=== PATIENT | female | born 1945 | race Caucasian/White ===

== ENCOUNTER 2017-11-04 16:04 | Outpatient (CLI) | payer MEDICARE, BC | END 2017-11-04 16:05 | disposition home or self-care (01) | LOC: BICMAMMO 16:04 | PROVIDERS: ATTEND Nurse Practitioner Family | DX: Z12.31 Encounter for screening mammogram for malignant neoplasm of breast (principal); Z78.0 Asymptomatic menopausal state; R92.1 Mammographic calcification found on diagnostic imaging of breast; M85.88 Other specified disorders of bone density and structure, other site; M85.862 Other specified disorders of bone density and structure, left lower leg | CPT/HCPCS: 77063; 77080; G0202; 77067 ==

== ENCOUNTER 2019-09-09 13:26 | Outpatient (CLI) | payer MEDICARE, BC ==
--- NOTE | 2019-09-09 14:06 | MMO ---
Bilateral MAMMO Bilat Screen DDI+NANCY. CLINICAL HISTORY: Patient is 73 years old and is seen for screening. The patient has no family history of breast cancer. The patient has no personal history of cancer. VIEWS: The views performed were: bilateral craniocaudal with tomosynthesis and bilateral mediolateral oblique with tomosynthesis. FILMS COMPARED: The present examination has been compared to prior imaging studies performed at [facility] on 11/02/2016 and 11/04/2017, and at [facility] on 09/24/2007 and 07/01/2009. This study has been interpreted with the assistance of computer-aided detection. MAMMOGRAM FINDINGS: There are scattered fibroglandular densities. There are vascular calcifications seen in both breasts. There are no suspicious masses, suspicious calcifications, or new areas of architectural distortion. IMPRESSION: THERE IS NO MAMMOGRAPHIC EVIDENCE OF MALIGNANCY. A ROUTINE FOLLOW-UP MAMMOGRAM IN 1 YEAR IS RECOMMENDED. THE RESULTS OF THIS EXAM WERE SENT TO THE PATIENT. ACR BI-RADS Category 2 - Benign finding MAMMOGRAPHY NOTE: 1. A negative mammogram report should not delay a biopsy if a dominant of clinically suspicious mass is present. 2. Approximately 10% to 15% of breast cancers are not detected by mammography. 3. Adenosis and dense breasts may obscure an underlying neoplasm. Reported by: ABBY ELLIS MD Electonically Signed: [id number]
== END 2019-09-09 13:27 | disposition home or self-care (01) ==
LOC: BICMAMMO 13:26
PROVIDERS: ATTEND Nurse Practitioner Family
DX: Z12.31 Encounter for screening mammogram for malignant neoplasm of breast (principal)
CPT/HCPCS: 77063; 77067

== ENCOUNTER 2020-04-29 08:15 | Inpatient (IN) | payer MEDICARE, BC ==
[2020-04-29 08:36] LABS: #Basophils 0.1 thou/uL (0.0-0.2); #Eosinphils 0.2 thou/uL (0.0-0.7); #Lymphocytes 1.9 thou/uL (1.20-3.40); #Monocytes 0.5 thou/uL (0.11-0.59); #Neutrophils 7.5 thou/uL (1.40-6.50); %Basophils 0.5 % (0.0-1.0); %Eosinophils 2.2 % (0.0-10.0); %Lymphocytes 18.9 % (21.0-51.0); %Monocytes 5.3 % (0.0-10.0); %Neutrophils 73.2 % (42.0-75.0); Hemoglobin 14.4 g/dL (12.0-16.0); Mean Corpuscular HGB CONC 33.1 g/dL (32.0-36.0); Mean Corpuscular Hemoglobin 30.5 pg (27.0-31.0); Mean Corpuscular Volume 92.2 fL (78.0-98.0); Mean Platelet Volume 7.4 fL (7.4-10.4); Platelet Count 212 thou/uL (130-400); RBC Distribution Width 11.6 % (11.5-14.5); Red Blood Cell (RBC) Count 4.72 mill/uL (4.20-5.40); White Blood Cell (WBC) Count 10.2 thou/uL (4.8-10.8)
[2020-04-29 08:41] LABS: Prothrombin Time 12.9 sec (12.0-14.7)
[2020-04-29] MEDS ORDERED: Adacel (T-DAP) 0.5 ML SYRINGE ONE (08:42)
[2020-04-29 08:51] LABS: ALT (SGPT) 19 U/L (8-55); AST (SGOT) 20 U/L (5-34); Albumin 3.7 g/dL (3.4-4.8); Alkaline Phosphatase 68 U/L (40-110); Anion Gap 10 mmol/L (10-20); BUN (Urea Nitrogen) 27 mg/dL (9.8-20.1); Bilirubin, Total 0.5 mg/dL (0.2-1.2); CK (CPK) 81 U/L (29-168); Calc. Creatinine Clearance 0 mL/min (70-130); Carbon Dioxide 29 mmol/L (23-31); Chloride 106 mmol/L (98-107); Estimated GFR-MDRD 53; Globulin 2.9 g/dL (2.4-3.5); Glucose 146 mg/dL (83-110); Protein, Total 6.6 g/dL (6.0-8.3); Sodium 141 mmol/L (136-145)
[2020-04-29] MEDS ORDERED: Fentanyl 100 MCG/2 ML VIAL ONE (08:54)
[2020-04-29] MEDS ORDERED: Ketamine 50 MG/ML (10ML VIAL) ONE (10:51)
--- NOTE | 2020-04-29 10:53 | RAD ---
SINGLE VIEW OF THE CHEST: COMPARISON: None. HISTORY: Fall. Level II trauma. Preoperative radiograph. FINDINGS: A single view of the chest shows a normal-size cardiomediastinal silhouette. A cardiac monitoring de vice projects over the left chest wall. There is no evidence of consolidation, mass, or pleural effu jossue. IMPRESSION: No evidence of acute cardiopulmonary disease. POS: EAA
--- NOTE | 2020-04-29 10:57 | RAD ---
TWO VIEWS OF THE RIGHT TIBIA/FIBULA: COMPARISON: None. HISTORY: Level II trauma after a fall. Right leg pain. FINDINGS: Two views of the right tibia/fibula show transverse fractures of the distal third of the tibia and fi bula. IMPRESSION: Distal tibia and fibula fractures. POS: EAA
[2020-04-29] MEDS ORDERED: Ondansetron PF 4 MG/2 ML Vial IVP PRN (11:57)
[2020-04-29] MEDS ORDERED: Dextrose 50% Abboject 50 ML SYRINGE SLOW IVP PRN (11:57)
[2020-04-29] MEDS ORDERED: Morphine 2 MG/ML SYRINGE SLOW IVP PRN (11:57)
[2020-04-29] MEDS ORDERED: Dextrose 5% in Water 1,000 ML IV PRN (11:57)
[2020-04-29] MEDS ORDERED: hydrALAZINE 20 MG/ML VIAL SLOW IVP PRN (11:57)
[2020-04-29] MEDS ORDERED: Cyclobenzaprine 10 MG TAB PO PRN (11:59)
[2020-04-29] MEDS ORDERED: Sodium Chloride 0.9% 1,000 ML IV SCH (12:00)
--- NOTE | 2020-04-29 13:18 | HP ---
TRAUMA SURGEON: Dr. Persaud. CONSULTING PHYSICIAN: Dr. Scott of Orthopedic Surgery. HISTORY OF PRESENT ILLNESS: The patient is a 74-year-old female, presented to the emergency department via EMS as a level 2 trauma activation after she had a mechanical fall from a ladder. The patient reported she was about 2 to 3 feet off the ground. She said she slipped subsequently falling backwards. Her right leg got stuck in the ladder. She denies loss of consciousness. Reports she takes a baby aspirin every day, but no other anticoagulation. She had a right closed distal tib-fib fracture, which was reduced by the emergency room physician. Upon my evaluation, she complained of right lower extremity pain. Otherwise, she denied numbness and tingling in her bilateral upper and lower extremities as well as neck or back pain. She denies loss of consciousness. REVIEW OF SYSTEMS: All additional 10-point review of systems negative except as indicated above. PAST MEDICAL HISTORY: Hypertension, hypothyroidism, and hyperlipidemia. The patient also has an implanted monitoring analyst for the past year due to a syncopal episode. There has been no recordings that have been concerning yet. PAST SURGICAL HISTORY: Tubal ligation. SOCIAL HISTORY: The patient lives at home alone. She does not use any assistive devices to get around. She denies tobacco, drug or alcohol abuse. Her daughter is at the bedside. MEDICATIONS: 1. Omeprazole. 2. Amlodipine. 3. Levothyroxine. 4. Lisinopril/hydrochlorothiazide. 5. Pravastatin. 6. Trazodone. 7. Baby aspirin. 8. Calcium. 9. Vitamin D3. 10. Meloxicam. ALLERGIES: NO KNOWN DRUG ALLERGIES. PHYSICAL EXAMINATION: VITAL SIGNS: Temperature 98.6, pulse 63, respirations 12, oxygen saturation 95% on room air, and blood pressure 148/82. PRIMARY SURVEY: Airway intact. Adequate breath sounds bilaterally. 2+ pulses in bilateral radials, femorals, and DPs. GCS 15. Gross motor and sensation intact. No lacerations bruising or external bleeding. There is a splint to the right lower extremity. SECONDARY SURVEY: HEAD: Normocephalic and atraumatic. No gross palpable skull deformities or tenderness. EYES: Pupils 3-2, equal, round, reactive to light bilaterally. FACE: No signs of trauma. C-SPINE: No step-offs or deformities, nontender, C-collar not in place. CHEST: Nontender. No crepitus. No abrasions or ecchymosis. Equal chest movement. ABDOMEN: Soft, nontender, and nondistended. PELVIS: Stable to palpation, nontender. No abrasions or ecchymosis. RECTAL: Deferred. GENITOURINARY: Deferred. EXTREMITIES: The patient has a splint to the right lower extremity. No abrasions or ecchymosis. 2+ pulses in bilateral radials, femorals, and DPs. BACK/SPINE: No step-offs or deformities or tenderness to palpation of the thoracic or lumbar spine. No abrasions or ecchymosis noted. NEUROLOGIC: 5/5 strength in bilateral payroll accounting clerk, plantar flexion, dorsiflexion. Gross normal sensation x4 extremities. LABORATORY FINDINGS: White count 10.2, hemoglobin 14.4, hematocrit 43.5, and platelets 212. INR 1.0. Sodium 141, potassium 4.0, chloride 106, bicarb 29, BUN 27, creatinine 1.02, and glucose 146. Troponin less than 0.010. DIAGNOSTIC FINDINGS: Chest x-ray demonstrates no evidence of acute cardiopulmonary disease. X-ray of the right tib-fib demonstrates distal tibia and fibula fractures. ASSESSMENT: 1. Status post fall from ladder, about 3 feet. 2. Right distal tib-fib fracture. 3. History of hypertension, hypothyroidism, and hyperlipidemia. PLAN: The patient will be admitted to the Trauma Service. Dr. Scott of Orthopedic Surgery has been consulted and plans to take the patient to the OR today. She is receiving 500 mL bolus in the emergency department. She is n.p.o. and will also receive 1 L of IV fluids at 70 an hour once. Postoperatively, she will have a regular diet. She will have p.o. and IV pain medications both scheduled and as needed. Postop, she will work with Physical and Occupational Therapy. She will likely need placement in acute rehab facility. Once nursing has completed the patient's med rec, we will start her home medications as clinically indicated. This patient was discussed with Dr. Persaud before this dictation. Job ID: [id number]
[2020-04-29] MEDS: Acetaminophen 500 MG TAB PO SCH ×3 (14:38→23:32)
[2020-04-29] MEDS: Ibuprofen 600 MG TAB PO SCH ×2 (15:31→19:33)
[2020-04-29] MEDS: Gabapentin 100 MG CAP PO SCH ×2 (15:32→19:33)
--- NOTE | 2020-04-29 15:41 | CON ---
DATE OF CONSULTATION: CHIEF COMPLAINT: Right leg pain after fall. HISTORY OF PRESENT ILLNESS: The patient is a 74-year-old female, who was on a ladder and lost her balance and fell approximately 3 to 4 foot. Her right leg caught in the ladder and snapped. No loss of consciousness. No other injuries. PAST MEDICAL HISTORY: Hypertension, hypothyroidism. PAST SURGICAL HISTORY: She has had bilateral tubal ligation . Echocardiogram. She is on a heart monitor. Her animation director is Dr. Rivera. ALLERGIES: SHE HAS NO KNOWN DRUG ALLERGIES. SOCIAL HISTORY: She is . No tobacco or alcohol. FAMILY HISTORY: Diabetes, hypertension, and heart disease. MEDICATIONS: 1. Omeprazole. 2. Amlodipine. 3. Levothyroxine. 4. Lisinopril/hydrochlorothiazide. 5. Pravastatin. 6. Trazodone. 7. Baby aspirin. 8. Calcium. 9. Vitamin D3. PHYSICAL EXAMINATION: VITAL SIGNS: Temperature 98.4, pulse 70, blood pressure 135/80, and saturation 94%. GENERAL: She is awake, alert, in no apparent distress. HEENT: Good hair growth. No alopecia. No scalp or facial trauma. Her pupils are equal, round, and reactive. Extraocular movement intact. Good dentition. Pharynx clear. Trachea midline. NECK: Supple. Nontender. No soft tissue swelling. CHEST: Nontender. No evidence of trauma. ABDOMEN: Soft, nondistended, and nontender. No masses. No evidence of trauma. PELVIS: Stable. EXTREMITIES: Her right lower leg is in a splint. She has a good capillary refill. She can wiggle her toes. There is no sensory loss on the left. Good pulses. No pedal edema. BACK: Nontender. IMAGING DATA: X-ray shows a distal tibia and fibula fracture. ASSESSMENT: Tibia-fibula fracture, right lower leg. PLAN: Orthopedic repair. Job ID: [id number]
--- NOTE | 2020-04-29 19:20 | CON ---
DATE OF CONSULTATION: 04/29/2020 HISTORY OF PRESENT ILLNESS: Ms. Webster is a 74-year-old female, who fell approximately 2 to 3 feet off the ladder, slipped, falling backwards. The right leg got stuck in the ladder. She had immediate pain, deformity in the right leg. The patient was brought to the emergency room and x-rays revealed displaced distal right tibia and fibula shaft fractures. The patient has no neurologic complaints. The fractures were partially reduced and she was placed in a splint. PAST SURGICAL HISTORY: Tubal ligation. MEDICAL HISTORY: Hypertension, hypothyroidism, hyperlipidemia. She has an implanted front desk monitor in the past year due to syncopal episodes. SOCIAL HISTORY: The patient lives at home alone. She denies tobacco, drugs, or alcohol use. CURRENT MEDICATIONS: 1. Omeprazole. 2. Amlodipine. 3. Levothyroxine. 4. Lisinopril and hydrochlorothiazide. 5. Pravastatin. 6. Trazodone. 7. Baby aspirin. 8. Calcium. 9. Vitamin D3. 10. Meloxicam. ALLERGIES: NONE. PHYSICAL EXAMINATION: GENERAL: The patient is pleasant female, alert and oriented x3. VITAL SIGNS: The patient is afebrile. Pulse 63, respiratory rate 12, blood pressure 148/82, and O2 saturation 95% on room air. HEENT: Unremarkable for age. Cranial nerves 2 through 12 are grossly intact. NECK: Has good range of motion without pain. Thoracic and lumbar spine nontender to palpation. LUNGS: Clear bilaterally. HEART: Regular rate and rhythm. ABDOMEN: Soft and nontender. Bowel sounds positive. : Not done. EXTREMITIES: The patient has a splint on the right lower extremity. She is able to flex and extend her toes well. She has good peripheral pulses and normal sensation. LABORATORY DATA: White count 10.2, hemoglobin 14.4, hematocrit 43.5, glucose slightly elevated at 146. INR is 1. IMPRESSION: 1. Displaced right distal tibia and fibular shaft fractures. 2. Hypertension. 3. Hypothyroidism. 4. Hyperlipidemia. PLAN: The patient will require open reduction and internal fixation of the right tibia and fibula. Plan on using an interlocking intramedullary sophia for the tibial shaft fracture. Explained this to the patient. We talked about the risks, benefits, and alternatives. The patient is in agreement with the surgery. We will proceed with that tomorrow morning. Job ID: [id number]
[2020-04-29] MEDS: Senokot S 8.6-50 MG TAB PO SCH (19:32)
[2020-04-29] MEDS: traMADol HCl 50 MG TAB PO PRN (19:33)
[2020-04-29] MEDS: Atorvastatin Calcium 10 MG TAB PO SCH (19:33)
[2020-04-29] MEDS ORDERED: Famotidine/PF 20 mg/2ml Vial SLOW IVP SCH (21:00)
--- NOTE | 2020-04-30 04:10 | PRG ---
DATE OF SERVICE: 04/30/2020 SUBJECTIVE: Ms. Webster remained in surgical floor. The patient was seen on round this evening. The patient reports pain is controlled. Her urine is adequate. Her vital signs have been stable. OBJECTIVE: GENERAL: Currently, the patient is lying in bed comfortable with no acute respiratory distress. VITAL SIGNS: Stable. LUNGS: Clear bilaterally. HEART: Regular rate and rhythm. ABDOMEN: Soft, nondistended. EXTREMITIES: Neurovascularly intact x4. Right lower extremity splint is intact. ASSESSMENT: 1. Status post mechanical fall. 2. Right tibia-fibula fracture. 3. History of hypertension, hypothyroidism. PLAN: Plan will be to continue supportive care. Continue pain control. Continue nonpharmacological DVT prophylaxis and pulmonary toilet. Gastritis prophylaxis. The patient will have plan to go to the OR tomorrow for right tib-fib fracture fixation. Postop, the patient will need to work with Physical Therapy and Occupational Therapy. Anticipate placement in rehabilitation facility or [facility] facility. Job ID: [id number]
[2020-04-30] MEDS: Acetaminophen 500 MG TAB PO SCH ×4 (05:02→23:34)
[2020-04-30] MEDS: Ibuprofen 600 MG TAB PO SCH ×3 (05:03→21:25)
[2020-04-30] MEDS: Levothyroxine Sodium 75 MCG TAB PO SCH (05:03)
[2020-04-30 06:11] LABS: #Eosinphils 0.2 thou/uL (0.0-0.7); #Lymphocytes 1.1 thou/uL (1.20-3.40); #Monocytes 0.3 thou/uL (0.11-0.59); #Neutrophils 2.7 thou/uL (1.40-6.50); %Basophils 0.6 % (0.0-1.0); %Eosinophils 5.5 % (0.0-10.0); %Monocytes 6.7 % (0.0-10.0); %Neutrophils 61.2 % (42.0-75.0); Hemoglobin 12.1 g/dL (12.0-16.0); Mean Corpuscular HGB CONC 32.5 g/dL (32.0-36.0); Mean Corpuscular Hemoglobin 29.9 pg (27.0-31.0); Mean Corpuscular Volume 91.9 fL (78.0-98.0); Mean Platelet Volume 7.6 fL (7.4-10.4); Platelet Count 166 thou/uL (130-400); RBC Distribution Width 11.8 % (11.5-14.5); Red Blood Cell (RBC) Count 4.04 mill/uL (4.20-5.40); White Blood Cell (WBC) Count 4.3 thou/uL (4.8-10.8)
[2020-04-30 06:29] LABS: Anion Gap 10 mmol/L (10-20); BUN (Urea Nitrogen) 26 mg/dL (9.8-20.1); Calc. Creatinine Clearance 64 mL/min (70-130); Calcium 8.1 mg/dL (7.8-10.44); Carbon Dioxide 28 mmol/L (23-31); Chloride 108 mmol/L (98-107); Estimated GFR-MDRD 67; Glucose 97 mg/dL (83-110); Phosphorus 3.6 mg/dL (2.3-4.7); Potassium 4.4 mmol/L (3.5-5.1); Sodium 142 mmol/L (136-145)
[2020-04-30] MEDS ORDERED: Phenylephrine 10 MG/ML VIAL ONE (07:17)
[2020-04-30] MEDS ORDERED: Fentanyl 100 MCG/2 ML VIAL ONE ×2 (07:17→09:37)
[2020-04-30] MEDS ORDERED: Neomycin-Polymyxin 1 ML AMP ONE (07:20)
[2020-04-30] MEDS ORDERED: Sodium Chloride 0.9% 10 ML ONE (07:42)
[2020-04-30] MEDS ORDERED: Bupivacaine HCl 0.5%/Epinephrine 1:200,000/PF 30 ml Vial ONE (08:56)
[2020-04-30] MEDS ORDERED: Ondansetron ODT 4 MG TAB PO PRN (09:12)
[2020-04-30] MEDS ORDERED: Milk Of Magnesia 30 ML UDCUP PO PRN (09:12)
[2020-04-30] MEDS ORDERED: Fleet Enema 133 ML BOT PR PRN (09:12)
[2020-04-30] MEDS ORDERED: Ondansetron PF 4 MG/2 ML Vial IVP PRN (09:12)
[2020-04-30] MEDS ORDERED: Bisacodyl 10 MG SUPP PR PRN (09:12)
[2020-04-30] MEDS ORDERED: Cepastat Lozenges 1 LOZ PO PRN (09:12)
[2020-04-30] MEDS ORDERED: Promethazine HCl 25 MG/ML VIAL SLOW IVP PRN (09:21)
[2020-04-30] MEDS ORDERED: Ondansetron HCl/PF 4 MG/2 ML Vial IVP PRN (09:21)
[2020-04-30] MEDS ORDERED: Promethazine HCl 25 MG/ML VIAL IM PRN (09:21)
[2020-04-30] MEDS: Gabapentin 100 MG CAP PO SCH ×3 (09:25→20:26)
[2020-04-30] MEDS: Polyethylene Glycol 3350 17 GM Packet PO SCH (09:26)
[2020-04-30] MEDS: Senokot S 8.6-50 MG TAB PO SCH ×2 (09:26→20:26)
[2020-04-30] MEDS: Sodium Phosphate 15 MMOL in Sodium Chloride 0.9% 250 ML 250 ML IVPB SCH ×2 (09:28→15:32)
[2020-04-30] MEDS ORDERED: Ketorolac Tromethamine 30 MG/ML VIAL ONE (09:43)
[2020-04-30] MEDS ORDERED: Glycopyrrolate 0.2 MG/ML 5 ML SYRINGE ONE ×2 (09:52→10:55)
--- NOTE | 2020-04-30 09:57 | OP ---
DATE OF PROCEDURE: 04/30/2020 PREOPERATIVE DIAGNOSIS: Displaced distal right tibia and fibula shaft fractures. POSTOPERATIVE DIAGNOSIS: Displaced distal right tibia and fibula shaft fractures. PROCEDURE PERFORMED: Interlocking intramedullary rodding of the right distal tibial shaft. ANESTHESIA: General. DESCRIPTION OF PROCEDURE: The patient was given preoperative IV antibiotics, taken to the operating room, placed in a supine position. Satisfactory general anesthesia was performed. The right lower extremity was sterilely prepped and draped in the usual fashion. After exsanguination, the tourniquet at the proximal right thigh was raised to 250 mmHg. A longitudinal incision was made medial to the patella down to the proximal tibia, and under fluoroscopic visualization, a guide pin was placed through the proximal aspect of the tibia into the intramedullary canal. The guide pin was then over-reamed and the guide pin for reaming was then inserted into the tibial shaft and crossing the fracture. Appropriate size sophia was measured on the length and the intramedullary canal was then sequentially reamed up to 13.5. A Synthes 12-mm cannulated tibial nail that was 315 mm in length was then inserted through the proximal aspect of the tibia, crossing the fracture down to the distal tibia. An interlocking 5-mm locking screw was then inserted into the proximal aspect of the shaft and then two of the 5.0 locking screws were inserted distally. This provided excellent fixation for the tibial shaft fracture and provided good alignment for the distal fibular shaft fracture. The wounds were then irrigated with antibiotic solution. The retinacular tissue was closed using #2 Vicryl, the fat and subcutaneous tissue were closed with 0 Vicryl, and the skin incisions were closed with skin edward. Total of 30 mL of 0.5% Marcaine with epinephrine was then used to provide postoperative analgesia. Sterile dressing was applied. The patient was placed in a tall boot. The tourniquet was released. The patient was awakened, extubated, and transferred to recovery room in stable condition. ESTIMATED BLOOD LOSS: Minimal. COMPLICATIONS: None. TOURNIQUET TIME: 39 minutes. Job ID: [id number]
[2020-04-30] MEDS ORDERED: CEFAZOLIN 2 GM in Premix Bag 1 BAG IVPB SCH (10:30)
[2020-04-30] MEDS ORDERED: PROPOFOL 200 MG/20 ML VIAL ONE (10:55)
[2020-04-30] MEDS ORDERED: Ondansetron PF 4 MG/2 ML Vial ONE (10:55)
[2020-04-30] MEDS ORDERED: Rocuronium Bromide 10 MG/ML (10ML VIAL) ONE (10:55)
[2020-04-30] MEDS ORDERED: Lidocaine 1% PF 5 ML VIAL ONE (10:55)
[2020-04-30] MEDS ORDERED: EPHEDRINE 25 MG/5 ML SYRINGE ONE (10:55)
[2020-04-30] MEDS ORDERED: PHENYLEPHRINE-NS 100 MCG/ML 10 ML SYRINGE ONE (10:55)
[2020-04-30] MEDS: Ketorolac Tromethamine 30 MG/ML VIAL IVP SCH ×3 (13:14→23:33)
[2020-04-30] MEDS: CEFAZOLIN 2 GM in Premix Bag 1 BAG IVPB SCH ×2 (13:14→23:34)
--- NOTE | 2020-04-30 15:13 | RAD ---
EXAM: INTRAOPERATIVE FLUOROSCOPY: HISTORY: ORIF right tibia. COMPARISON: None. EXPOSURE: 34.8 seconds. 1.51 mGy. FINDINGS: Two intraoperative fluoroscopic views demonstrate an intramedullary sophia with a single proximal and tw o distal interlocking screws. Fracture lucencies of the distal tibia and fibula are noted. Near anato shivam alignment in suspected on the single image provided. IMPRESSION: Intraoperative fluoroscopy as above. POS: OFF
--- NOTE | 2020-04-30 15:49 | PRG ---
DATE OF SERVICE: 04/30/2020 SUBJECTIVE: The patient was seen this morning during rounds. She is postoperative day 0, status post fixation of her right distal tib-fib fracture. At the time of my evaluation, the patient reported her pain as 1/10. She has been drinking since surgery and reports she is tolerating that well. She is going to work with Physical and Occupational Therapy today and reports she will try to have a meal at lunchtime. OBJECTIVE: VITAL SIGNS: Temperature 98.0, pulse 63, respirations 20, oxygen saturation 97% on 2 L nasal cannula, and blood pressure 127/74. GENERAL: Well-appearing elderly female, lying in bed with no signs of acute distress. PULMONARY: Equal chest rise and fall. Clear breath sounds bilaterally. No signs of acute respiratory distress. CARDIAC: Regular rate and rhythm. GI: Abdomen is soft, nontender, nondistended. EXTREMITIES: 2+ pulses in all extremities. Gross motor and sensation are intact. No significant swelling noted. Splint to right lower extremity is clean, dry, and intact with no signs of oozing. NEUROLOGIC: GCS is 15. LABORATORY FINDINGS: White count 4.3, hemoglobin 12.1, hematocrit 37.2, and platelets 166. INR 1.0. Sodium 142, potassium 4.4, chloride 108, bicarb 28, BUN 26, creatinine 0.83, glucose 97, phosphorus 3.7, and magnesium 2.0. DIAGNOSTIC FINDINGS: There are no new diagnostic findings to report. ASSESSMENT: 1. Status post mechanical fall from ladder about 3 feet. 2. Right distal tib-fib fracture, status post repair. 3. Acute hypophosphatemia. 4. History of hypertension, hypothyroidism, hyperlipidemia. PLAN: The patient back on the surgical floor. Continue regular diet. Start physical and occupational therapy. We will start DVT prophylaxis tomorrow. She is back on her home medications as well. We will evaluate her need for outpatient acute rehab based off the recommendations by Physical Therapy. Job ID: [id number]
[2020-04-30] MEDS: traMADol HCl 50 MG TAB PO PRN (20:26)
[2020-04-30] MEDS: Ferrous Gluconate 324 MG TAB PO SCH (20:26)
[2020-04-30] MEDS: Atorvastatin Calcium 10 MG TAB PO SCH (20:26)
[2020-04-30] MEDS: Aspirin 325 MG TAB PO SCH (20:26)
--- NOTE | 2020-05-01 01:33 | PDOC.BPN ---
- Brief Progress Note DATE OF SERVICE: 04/30/2020 SUBJECTIVE: Ms. Webster remained in surgical floor. The patient was seen on round this evening. Patient underwent R tib/ fib fracture fixation today. Post op patient been doing well. She tolerate with her diet. The patient reports pain is controlled. Her urine is adequate. Her vital signs have been stable. OBJECTIVE: GENERAL: Currently, the patient is lying in bed comfortable with no acute respiratory distress. VITAL SIGNS: Stable. LUNGS: Clear bilaterally. HEART: Regular rate and rhythm. ABDOMEN: Soft, nondistended. EXTREMITIES: Neurovascularly intact x4. Right lower extremity splint is intact. ASSESSMENT: 1. Status post mechanical fall. 2. Right tibia-fibula fracture, status repaired 3. History of hypertension, hypothyroidism. PLAN: Plan will be to continue supportive care. Continue pain control. DVT prophylaxis and pulmonary toilet. Gastritis prophylaxis. Patient will need to work with Physical Therapy and Occupational Therapy. Anticipate placement in rehabilitation facility or [facility] home facility.
[2020-05-01 05:03] LABS: Hemoglobin 10.7 g/dL (12.0-16.0); Mean Corpuscular HGB CONC 31.8 g/dL (32.0-36.0); Mean Corpuscular Hemoglobin 29.5 pg (27.0-31.0); Mean Corpuscular Volume 92.6 fL (78.0-98.0); Mean Platelet Volume 7.9 fL (7.4-10.4); Platelet Count 151 thou/uL (130-400); RBC Distribution Width 11.8 % (11.5-14.5); Red Blood Cell (RBC) Count 3.64 mill/uL (4.20-5.40); White Blood Cell (WBC) Count 6.2 thou/uL (4.8-10.8)
[2020-05-01] MEDS: Ketorolac Tromethamine 30 MG/ML VIAL IVP SCH (05:12)
[2020-05-01] MEDS: Levothyroxine Sodium 75 MCG TAB PO SCH (05:13)
[2020-05-01] MEDS: Acetaminophen 500 MG TAB PO SCH ×3 (05:13→17:03)
[2020-05-01] MEDS: Ibuprofen 600 MG TAB PO SCH ×2 (05:13→13:04)
[2020-05-01] MEDS ORDERED: PHOS-NAK 1 PKT PACK PO SCH (08:15)
[2020-05-01] MEDS: traMADol HCl 50 MG TAB PO PRN ×2 (08:52→17:03)
[2020-05-01] MEDS: Polyethylene Glycol 3350 17 GM Packet PO SCH (08:53)
[2020-05-01] MEDS: Gabapentin 100 MG CAP PO SCH ×2 (08:54→13:05)
[2020-05-01] MEDS: Aspirin 325 MG TAB PO SCH (08:54)
[2020-05-01] MEDS: Senokot S 8.6-50 MG TAB PO SCH (08:54)
[2020-05-01] MEDS: Ferrous Gluconate 324 MG TAB PO SCH (08:54)
[2020-05-01] MEDS ORDERED: Multivitamin W/ Minerals 1 TAB PO SCH (09:00)
[2020-05-01] MEDS ORDERED: Lisinopril/Hydrochlorothiazide 20/25 mg Tablet PO SCH (09:00)
[2020-05-01] MEDS ORDERED: Amlodipine 5 MG TAB PO SCH (09:00)
[2020-05-01 15:57] VITALS: BP 150/81; TEMP 98.9
--- NOTE | 2020-05-02 07:07 | DIS ---
DATE OF ADMISSION: 04/29/2020 DATE OF DISCHARGE: 05/01/2020 ADMISSION DIAGNOSIS: Mechanical fall from ladder about 3 feet, right distal tib-fib fracture. DISCHARGE DIAGNOSIS: Mechanical fall from ladder about 3 feet, right distal tib-fib fracture. CONSULTING PHYSICIAN: Dr. Scott of Orthopedic Surgery. PROCEDURES: The patient went to the OR on April 30, 2020, with Dr. Scott and had an interlocking intramedullary rodding of the right distal tibial shaft. HOSPITAL COURSE: The patient is a 74-year-old female who presented to the emergency department after a mechanical fall from a ladder about approximately 3 feet. Upon evaluation, she was found to have a right distal tib-fib fracture. She was admitted to the hospital. The next day she went to the OR with Dr. Scott and received a fixation of the injury. Postoperatively, she worked with Physical Therapy multiple times and they recommended discharge home with home PT. The patient's daughter works as a nurse in a [place] [facility] facility in [place] and preferred that she be discharged to that facility, but did not want to wait for insurance verification. Subsequently, we agreed to discharge the patient to the care of her daughter and her daughter plans to take her to the skilled facility. The patient is appropriate for discharge home and such it is appropriate for her to be transported by her daughter in a private vehicle to the facility since it is the family's choice to not wait longer in the hospital. We are willing to accommodate them. At the time of discharge, the patient's pain was well controlled, she was tolerating a diet. She was ambulating with a walker and voiding without issues. OBJECTIVE: VITAL SIGNS: Temperature 97.9, pulse 55, respirations 16, oxygen saturation 98% on room air, blood pressure 134/76. GENERAL: Well-appearing elderly female, sitting up in chair with no signs of acute distress. PULMONARY: Equal chest rise and fall. Clear breath sounds bilaterally. No signs of acute respiratory distress. CARDIAC: Regular rate and rhythm. GI: Abdomen is soft, nontender, nondistended. EXTREMITIES: 2+ pulses in all extremities. Gross motor and sensation intact. No significant swelling noted. Right lower extremity with walking boot in place. NEUROLOGIC: GCS is 15. DISCHARGE INSTRUCTIONS: The patient was discharged home, but will be transported to a [place] [facility] facility by the patient's daughter. Activity as tolerated. Weightbearing as tolerated on all extremities. Occupational and Physical Therapy. Incentive spirometry and a walker. DISCHARGE MEDICATIONS: Include 1. Tylenol. 2. Norvasc. 3. Aspirin. 4. Flexeril. 5. Fergon. 6. Gabapentin. 7. Ibuprofen. 8. Levothyroxine. 9. Lisinopril/hydrochlorothiazide. 10. Omeprazole. 11. MiraLAX. 12. Senokot S. 13. Tramadol. FOLLOWUP APPOINTMENTS: The patient is to follow up with Dr. Scott. No need for followup with Dr. Silveira in Trauma [facility]. This is merely a summary of the patient's hospitalization. For full details, please see her medical record in its entirety. This patient was seen and evaluated on the day of discharge by myself and it was discussed with Dr. Silveira before this dictation. Job ID: [id number]
== END 2020-05-01 17:40 | DRG 494 ==
LOC: ERS 08:15 → SJJU 13:20 → SURG A 04-30 07:50
PROVIDERS: ADMIT Surgery; ATTEND Surgery
PROC: 0QSGXZZ Reposition Right Tibia, External Approach (ICD-10-PCS; 2020-04-29)
PROC: 3E0234Z Introduction of Serum, Toxoid and Vaccine into Muscle, Percutaneous Approach (ICD-10-PCS; 2020-04-29)
PROC: 0QHG36Z Insertion of Intramedullary Internal Fixation Device into Right Tibia, Percutaneous Approach (ICD-10-PCS; principal; 2020-04-30)
PROC: BQ1DZZZ Fluoroscopy of Right Lower Leg (ICD-10-PCS; 2020-04-30)
DX: S82.221A Displaced transverse fracture of shaft of right tibia, initial encounter for closed fracture (principal); W11.XXXA Fall on and from ladder, initial encounter; E03.9 Hypothyroidism, unspecified; E78.5 Hyperlipidemia, unspecified; I10 Essential (primary) hypertension; S80.811A Abrasion, right lower leg, initial encounter; S82.421A Displaced transverse fracture of shaft of right fibula, initial encounter for closed fracture; E83.39 Other disorders of phosphorus metabolism; Z91.012 Allergy to eggs; Z98.51 Tubal ligation status; Z79.899 Other long term (current) drug therapy; Z79.890 Hormone replacement therapy; Z23 Encounter for immunization
CPT/HCPCS: 27752; 36415; 71045; 76000; 80048; 80053; 82550; 83735; 84100; 84484; 85025; 85027; 85610; 85730; 86850; 86900; 86901; 90471; 90715; 93005; 96361; 96365; 96375; 96376; 99152; 99153; C1713; G0390; J0670; J0690; J1885; J2001; J2270; J2370; J2405; J2704; J3010; J3370; J7050

== ENCOUNTER 2020-09-23 10:13 | Outpatient (CLI) | payer MEDICARE, BC ==
--- NOTE | 2020-09-23 10:41 | MMO ---
Bilateral MAMMO Bilat Screen DDI+NANCY. CLINICAL HISTORY: Patient is 75 years old and is seen for screening. The patient has no family history of breast cancer. The patient has no personal history of cancer. VIEWS: The views performed were: bilateral craniocaudal with tomosynthesis and bilateral mediolateral oblique with tomosynthesis. FILMS COMPARED: The present examination has been compared to prior imaging studies performed at [facility] on 11/02/2016, 11/04/2017 and 09/09/2019, and at [facility] on 07/01/2009. This study has been interpreted with the assistance of computer-aided detection. MAMMOGRAM FINDINGS: There are scattered fibroglandular densities. There are vascular calcifications seen in both breasts. There are no suspicious masses, suspicious calcifications, or new areas of architectural distortion. IMPRESSION: A ROUTINE FOLLOW-UP MAMMOGRAM IN 1 YEAR IS RECOMMENDED. THE RESULTS OF THIS EXAM WERE SENT TO THE PATIENT. ACR BI-RADS Category 2 - Benign finding MAMMOGRAPHY NOTE: 1. A negative mammogram report should not delay a biopsy if a dominant of clinically suspicious mass is present. 2. Approximately 10% to 15% of breast cancers are not detected by mammography. 3. Adenosis and dense breasts may obscure an underlying neoplasm. Reported by: COLTON ONEAL MD Electonically Signed: [id number]
== END 2020-09-23 10:14 | disposition home or self-care (01) ==
LOC: BICMAMMO 10:13
PROVIDERS: ATTEND Nurse Practitioner Family
DX: Z12.31 Encounter for screening mammogram for malignant neoplasm of breast (principal)
CPT/HCPCS: 77063; 77067